=== PATIENT | female | born 1960 | race Caucasian/White ===

== ENCOUNTER → 2025-02-11 12:54 | Outpatient (REF) | payer BC, SELFPAY | LOC: RAD 12:54 | PROVIDERS: ATTENDING PHYSICIAN Nurse Practitioner Family; FAMILY PHYSICIAN Family Medicine | DX: E83.52 Hypercalcemia (principal) | CPT/HCPCS: 77080 ==

== ENCOUNTER → 2025-02-13 08:38 | Outpatient (REF) | payer BC, SELFPAY | LOC: RAD 08:38 | PROVIDERS: ATTENDING PHYSICIAN Nurse Practitioner Family; FAMILY PHYSICIAN Family Medicine | DX: E83.2 Disorders of zinc metabolism (principal); E83.52 Hypercalcemia | CPT/HCPCS: 76536; 78071; A9500 ==

== ENCOUNTER → 2025-02-17 10:09 | Outpatient (REF) | payer BC, SELFPAY ==
[2025-02-17 09:29] LABS: Glucose 115 mg/dl (70-99)
== END ==
LOC: PET 10:09
PROVIDERS: ATTENDING PHYSICIAN Internal Medicine Hematology & Oncology
DX: C83.89 Other non-follicular lymphoma, extranodal and solid organ sites (principal)
CPT/HCPCS: 36415; 82947